=== PATIENT | male | born 1950 | race Caucasian/White ===

== ENCOUNTER → 2016-11-01 | Day surgery (SDC) | payer OTHER ==
[~2016-11-01] MED LIST: BUPIVACAINE/EPINEPHRINE 0.5% 50 ML VIAL ONE; LACTATED RINGER'S 1000 ML INJ 1,000 ML ONE; ONDANSETRON HCL 4 MG/2 ML VIAL IV PUSH ONE; PROPOFOL 200 MG/20 ML AMP IV ONE; ceFAZolin INJ 1,000 MG VIAL ONE
--- NOTE | 2016-11-01 18:07 | TN ---
cc: HARPER CHÁVEZ DATE OF SURGERY: 11/01/2016 PREOPERATIVE DIAGNOSIS 1. Internal derangement of the left knee. 2. Probable medial meniscus tear of the left knee. POSTOPERATIVE DIAGNOSIS 1. Complex tear medial meniscus, left knee. 2. Osteoarthritis left knee, retropatellar and medial compartment. SURGICAL PROCEDURES 1. Arthroscopy, left knee. 2. Arthroscopic medial meniscectomy. 3. Abrasion chondroplasty. SURGEON Harper Chávez MD ANESTHESIA General. BLOOD LOSS Minimal. INDICATIONS This is a 66-year-old male who developed acute onset of left knee pain around [place] of last year. An MRI scan shows evidence of a complex tear of the medial meniscus. He presents for surgical treatment. PROCEDURE The patient brought to the operating room and anesthetized in supine position. The left leg was scrubbed with alcohol followed by Hibiclens followed by Chloraprep and draped sterilely. Antibiotics were given within a one-hour time window, a timeout was done. After exsanguination the tourniquet was inflated to 250 mmHg. Inflow was established anterior and laterally and effusion was drained. The camera was introduced along the retropatellar surface. The medial and lateral gutters were free of any loose bodies. There was a small medial plica which did not appear to be symptomatic. There was significant loss of articular cartilage medially in the retropatellar region along medial facet, corresponding changes were seen in the patella. The medial compartment showed a parrot beak type tear at about the 12 o'clock position and significant degenerative changes of the meniscus with a horizontal cleavage tear extending around to the 10 o'clock position. The medial tibial plateau showed minimal grade 1 changes, the medial femoral condyle grade 1 and grade 2 changes, the notch was normal. The lateral compartment showed loose bodies of articular cartilage but otherwise minimal degenerative changes of the meniscus and the cartilage was normal. A spinal needle was introduced along medial joint line. Straight and angled punches were used to take the meniscus back from 9 o'clock position to the posterior horn. The radial portion posteriorly was resected further than normal because it extended almost to the meniscal capsular junction. The fragments floated free from the joint. The wound was irrigated copiously. The portals were injected with 0.25% Marcaine with epinephrine. They were closed with Steri-Strips and Benzoin. A sterile dressing was applied. The patient awaken and taken to the Recovery Room in satisfactory condition. Harper MD RYAN Ravi/BJF /3:42 PM /5:55 PM
== END | disposition home or self-care (01) ==
LOC: ESDC 12:30
PROVIDERS: ATTEND Orthopaedic Surgery Orthopaedic Surgery of the Spine
DX: S83.232A Complex tear of medial meniscus, current injury, left knee, initial encounter (principal); M17.12 Unilateral primary osteoarthritis, left knee
CPT/HCPCS: J0690; J2405; J3010; J7120